=== PATIENT | female | born 1950 | race African-American/Black ===

== ENCOUNTER 2017-12-13 12:39 | Outpatient (CLI) | payer MEDICARE | END 2017-12-13 12:40 | disposition home or self-care (01) | LOC: BICMAMMO 12:39 | PROVIDERS: ATTEND Internal Medicine | DX: Z12.31 Encounter for screening mammogram for malignant neoplasm of breast (principal); Z78.0 Asymptomatic menopausal state; R92.1 Mammographic calcification found on diagnostic imaging of breast | CPT/HCPCS: 77063; 77067; 77080 ==

== ENCOUNTER 2018-09-14 09:41 | Outpatient (CLI) | payer MEDICARE, MEDICAID ==
--- NOTE | 2018-09-14 13:30 | CT ---
CONTRAST ENHANCED CTA CAROTIDS: HISTORY: Right-sided bruit. TECHNIQUE: Contrast enhanced CTA of the carotid arteries performed. FINDINGS: The patient has at tortuous right subclavian artery, which extends into the right anterior lower neck , just inferior to the inferior thyroid region. The right and left common carotid arteries are paten t without evidence of significant disease or stenosis. The right and left external and internal ortega tid arteries are patent. The left vertebral artery is dominant. The right vertebral artery is also patent. Good flow is seen in both vertebral arteries, intracranially. Incidentally noted area of soft tissue density is seen posterior to the superior vena cava and just t o the right of the distal trachea. This measures approximately 12 x 18 mm. It may represent an enla rged azygous vein; however, I cannot exclude the possibility of mass or lymphadenopathy in this area. I do recommend correlation with dynamic arterial and venous phase CT images of the chest, to furthe r evaluate this area and to determine whether this is an enlarged segment of the azygous vein versus a solid mass. IMPRESSION: Possible right prominent azygous vein versus right paratracheal mass. POS: [facility]
[2018-09-14] MEDS ORDERED: Iopamidol 370 76% 100 ML VIAL ONE (13:31)
== END 2018-09-14 09:42 | disposition home or self-care (01) ==
LOC: BICCT 09:41
PROVIDERS: ATTEND Internal Medicine
DX: R09.89 Other specified symptoms and signs involving the circulatory and respiratory systems (principal)
CPT/HCPCS: 70498

== ENCOUNTER 2018-12-26 14:05 | Outpatient (CLI) | payer MEDICARE, MEDICAID ==
[~2018-12-26 14:05] MED LIST: Iopamidol 370 76% 100 ML VIAL ONE
--- NOTE | 2018-12-26 16:16 | CT ---
CHEST CT WITH CONTRAST: 12/26/18 HISTORY: Chest mass suggested on previous angio neck CT. COMPARISON: 09/14/18. 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 There is no mediastinal mass, l ymphadenopathy or hematoma. Heart size is within normal limits. No significant pericardial fluid. Cor onary calcifications are identified. The visualized aorta has a normal caliber. Visualized upper solid organs are unremarkable. Calcified left hilar lymph node is noted. Trachea and central bronchi are patent. No mass. No consolidation. No pneumothorax or pleural effusio n. No lytic or blastic lesions in the osseous structures. IMPRESSION: No evidence of a mediastinal mass. 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 POS: [facility]
== END 2018-12-26 14:06 | disposition home or self-care (01) ==
LOC: BICCT 14:05
PROVIDERS: ATTEND Internal Medicine
DX: R93.89 Abnormal findings on diagnostic imaging of other specified body structures (principal)
CPT/HCPCS: 36415; 71260; 80048; Q9967

== ENCOUNTER 2019-01-09 12:23 | Outpatient (CLI) | payer MEDICARE, OTHER ==
--- NOTE | 2019-01-09 13:23 | ULT ---
FUS Renal Bilateral STANDARD History: [Chronic kidney disease] Comparison: None. Findings: Real-time grayscale and color evaluation of the kidneys and urinary bladder was performed. The right kidney measures 8.1 x 4.7 x 4.6 cm and the left kidney measures 9 x 5 x 5.3 cm. This is a s mall left superior pole 1.3 cm cyst. Urinary bladder is unremarkable. Impression: Small bilateral kidneys can be seen with chronic medical renal disease. No evidence for o bstructive uropathy.
== END 2019-01-09 12:24 | disposition home or self-care (01) ==
LOC: BICULT 12:23
PROVIDERS: ATTEND Internal Medicine
DX: N18.3 Chronic kidney disease, stage 3 (moderate) (principal); N27.1 Small kidney, bilateral
CPT/HCPCS: 76770

== ENCOUNTER 2019-04-08 13:11 | Outpatient (CLI) | payer MEDICARE, MEDICAID ==
--- NOTE | 2019-04-08 14:38 | MRI ---
Exam: MRI cervical spine without contrast HISTORY: Cervical radiculopathy. Neck pain, radiating down the left arm. COMPARISON: None FINDINGS: Appropriate T1 marrow signal intensity of the cervical vertebra. Vertebral body height is maintained . No fracture. No significant STIR hyperintensity to suggest vertebral body edema or ligamentous injury. T2 hyperintensities in the daya, incompletely evaluated. Expanded, partially empty sella. Visualized cervicomedullary junction, cervical cord, and the upper thoracic cord have a normal size a nd signal intensity. C2-C3: No significant central canal stenosis. Mild bilateral neural foraminal narrowing due to uncove rtebral hypertrophy. C3-C4: Broad-based disc osteophyte complex. Severe central canal stenosis. No cord hyperintensity. Mo derate to severe bilateral foraminal narrowing. C4-C5: Broad-based disc osteophyte complex. Severe central canal stenosis. Mild to moderate bilateral foraminal narrowing due to uncovertebral hypertrophy C5-C6: Broad-based disc osteophyte complex, ligament flavum thickening result in moderate to severe c entral canal stenosis. Moderate to severe right and severe left foraminal narrowing due to uncovertebral hypertrophy. C6-C7: Generalized disc bulge with mild central canal stenosis. Right neural foramen is patent. Mild left foraminal narrowing due to uncovertebral hypertrophy. C7-T1: Generalized disc bulge with mild central canal stenosis. Bilaterally, neural foramina are stewart nt. IMPRESSION: 1. Multilevel degenerative changes of the cervical spine as detailed above. Moderate to severe centra l canal stenosis at C5-C6, and severe central canal stenosis at C3-C4 and C4-C5. 2. Multilevel neural foraminal narrowing as detailed above. Transcribed Date/Time: 04/08/2019 3:13 PM
== END 2019-04-08 13:12 | disposition home or self-care (01) ==
LOC: BICMRI 13:11
PROVIDERS: ATTEND Internal Medicine
DX: M47.22 Other spondylosis with radiculopathy, cervical region (principal); M48.02 Spinal stenosis, cervical region; M48.03 Spinal stenosis, cervicothoracic region
CPT/HCPCS: 72141

== ENCOUNTER 2020-11-14 10:55 | Emergency (ER) | payer MEDICARE, OTHER ==
[2020-11-14] MEDS ORDERED: Cyclobenzaprine 10 MG TAB ONE (11:29)
== END 2020-11-14 11:46 | disposition home or self-care (01) ==
LOC: ERS 10:55
DX: S13.4XXA Sprain of ligaments of cervical spine, initial encounter (principal); E11.9 Type 2 diabetes mellitus without complications; E78.5 Hyperlipidemia, unspecified; E78.00 Pure hypercholesterolemia, unspecified; I10 Essential (primary) hypertension; X58.XXXA Exposure to other specified factors, initial encounter
CPT/HCPCS: 99283

== ENCOUNTER 2023-11-27 09:56 | Emergency (ER) | payer MEDICARE, OTHER ==
[2023-11-27 10:49] LABS: #Basophils 0.1 thou/uL (0.0-0.2); #Eosinphils 0.1 thou/uL (0.0-0.7); #Monocytes 0.5 thou/uL (0.11-0.59); #Neutrophils 5.2 thou/uL (1.40-6.50); %Eosinophils 1.2 % (0.0-10.0); %Monocytes 6.1 % (0.0-10.0); %Neutrophils 62.3 % (42.0-75.0); Hematocrit 49.8 % (36.0-47.0); Hemoglobin 15.5 g/dL (12.0-16.0); Mean Corpuscular HGB CONC 31.1 g/dL (32.0-36.0); Mean Corpuscular Hemoglobin 25.7 pg (27.0-31.0); Mean Corpuscular Volume 82.5 fl (78.0-98.0); Mean Platelet Volume 10.1 fL (7.4-10.4); Platelet Count 682 10x3/uL (130-400); RBC Distribution Width 16.5 % (11.5-14.5); Red Blood Cell (RBC) Count 6.04 mill/uL (4.20-5.40); White Blood Cell (WBC) Count 8.3 10x3/uL (4.8-10.8)
[2023-11-27 11:15] LABS: Acetaminophen Less than 10 mcg/mL (10.0-30.0); Alcohol Less than 10.0 mg/dL (Less than 10); Salicylate Less than 8.0 mg/dL (15.0-30.0)
[2023-11-27 11:17] LABS: ALT (SGPT) 10 U/L (8-55); AST (SGOT) 16 U/L (5-34); Albumin 4.1 g/dL (3.4-4.8); Alkaline Phosphatase 95 U/L (40-110); Anion Gap 13 mmol/L (10-20); BUN (Urea Nitrogen) 15 mg/dL (9.8-20.1); Bilirubin, Total 0.6 mg/dL (0.2-1.2); Calc. Creatinine Clearance 0 mL/min (70-130); Calcium 9.6 mg/dL (7.8-10.44); Carbon Dioxide 25 mmol/L (23-31); Chloride 104 mmol/L (98-107); Estimated GFR 62; Globulin 3.3 g/dL (2.4-3.5); Glucose 203 mg/dL (83-110); Potassium 3.7 mmol/L (3.5-5.1); Protein, Total 7.4 g/dL (5.8-8.1); Sodium 138 mmol/L (136-145)
== END 2023-11-27 12:27 | disposition home or self-care (01) ==
LOC: ERS 09:56
DX: R25.1 Tremor, unspecified (principal); I12.9 Hypertensive chronic kidney disease with stage 1 through stage 4 chronic kidney disease, or unspecified chronic kidney disease; E11.22 Type 2 diabetes mellitus with diabetic chronic kidney disease; N18.9 Chronic kidney disease, unspecified; E78.00 Pure hypercholesterolemia, unspecified; Z79.84 Long term (current) use of oral hypoglycemic drugs; Z79.899 Other long term (current) drug therapy
CPT/HCPCS: 36415; 80053; 80307; 85025; 93005